=== PATIENT | female | born 1985 | race Caucasian/White ===

== ENCOUNTER 2023-03-21 16:55 | Emergency (ER) | payer OTHER, SELFPAY ==
--- NOTE | ~2023-03-21 | CT_ITS ---
EXAMINATION: CT cervical spine wo con DATE: 03/21/2023 18:05 INDICATION: Neck pain TECHNIQUE: Computed tomography (CT) of the cervical spine was performed without intravenous contrast. The dose-length product (DLP) was 471.11 mGy-cm. Automated exposure control and iterative reconstruc tion technique were employed. COMPARISON: None FINDINGS: There is reversal of the normal cervical lordosis. No fracture, dislocation, or subluxation . The vertebral body heights, alignment, and intervertebral disc spaces are normal. The paravertebral soft tissues are unremarkable. IMPRESSION: 1. No acute osseous abnormality. Reviewed, dictated and finalized at location F.
--- NOTE | ~2023-03-21 | CT_ITS ---
EXAMINATION: CT lumbar spine wo con DATE: 03/21/2023 18:06 INDICATION: Low back pain TECHNIQUE: Computed tomography (CT) of the lumbar spine was performed without intravenous contrast. T he dose-length product (DLP) was 1393.83 mGy-cm. Iterative reconstruction was used. COMPARISON: None FINDINGS: No fracture, dislocation, or subluxation. There is mild loss of intervertebral disc space h eight at L5-S1. The vertebral body heights, alignment, and intervertebral disc spaces are otherwise n ormal. The paravertebral soft tissues are unremarkable. An IUD is noted. IMPRESSION: 1. Mild lumbar spondylosis at L5-S1 without acute osseous abnormality. Reviewed, dictated and finalized at location F.
[2023-03-21 17:07] VITALS: BP 131/85; PULSE 85; RESP 16; TEMP 36.3; O2SAT 100
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
[2023-03-21 19:04] VITALS: BP 124/79; PULSE 78; RESP 16; O2SAT 100
== END 2023-03-21 19:05 | disposition home or self-care (01) ==
PROVIDERS: Emergency Provider Physician Assistant
DX: S16.1XXA Strain of muscle, fascia and tendon at neck level, initial encounter (principal); S39.012A Strain of muscle, fascia and tendon of lower back, initial encounter; M47.817 Spondylosis without myelopathy or radiculopathy, lumbosacral region; V49.40XA Driver injured in collision with unspecified motor vehicles in traffic accident, initial encounter
CPT/HCPCS: 72125; 72131; 99284; L0140